=== PATIENT | female | born 1995 | race African-American/Black ===

== ENCOUNTER 2016-07-12 11:12 | Emergency (ER) | payer MEDICAID ==
[2016-07-12 11:24] VITALS: BP 106/71
--- NOTE | 2016-07-12 11:32 | ER Document Report ---
ED Medical Screen (RME) - General Stated Complaint: DIFFICULTY BREATHING Notes: 21 yo female c/o bleeding from incision. C section 1-13 in [place]. bleeding x several days, but has increased x 1 day. feels short of breath with activity, walking. no fever. + pain at incision. + hx/o asthma. + pre- eclampsia TRAVEL OUTSIDE OF THE [place] IN LAST 30 DAYS: No - Related Data Allergies/Adverse Reactions: strawberry Allergy (Verified 07/12/16 11:30) Past Medical History Pulmonary Medical History: Reports: Hx Asthma Physical Exam - Vital signs Vitals: Temp Pulse Resp BP Pulse Ox 98.0 F 93 16 106/71 97 07/12/16 11:23 07/12/16 11:23 07/12/16 11:23 07/12/16 11:23 07/12/16 11:23 Course - Vital Signs Vital signs: Temp Pulse Resp BP Pulse Ox 98.0 F 93 16 106/71 97 07/12/16 11:23 07/12/16 11:23 07/12/16 11:23 07/12/16 11:23 07/12/16 11:23
[2016-07-12 11:48] LABS: ABSOLUTE BASOPHILS # (AUTO) 0.1 10^3/uL (0.0-0.2); ABSOLUTE EOSINOPHILS # (AUTO) 0.2 10^3/uL (0.0-0.6); ABSOLUTE MONOCYTES (AUTO) 0.4 10^3/uL (0.1-1.4); EOSINOPHILS % (AUTO) 2.4 % (0-6); HEMATOCRIT 31.9 % (36.0-47.0); HEMOGLOBIN 10.6 g/dL (12.0-15.5); HGB HCT DIFFERENCE -0.1; LYMPHOCYTES % (AUTO) 15.2 % (13-45); MEAN CORPUSCULAR HEMOGLOBIN 30.6 pg (27.0-33.4); MEAN CORPUSCULAR HGB CONC 33.4 g/dL (32.0-36.0); MEAN CORPUSCULAR VOLUME 92 fl (80-97); MONOCYTES % (AUTO) 5.8 % (3-13); RED BLOOD COUNT 3.48 10^6/uL (3.72-5.28); RED CELL DISTRIBUTION WIDTH 14.3 % (11.5-14.0); SEGMENTED NEUTROPHILS % (AUTO) 75.6 % (42-78); WHITE BLOOD COUNT 6.6 10^3/uL (4.0-10.5)
[2016-07-12 12:01] LABS: ALANINE AMINOTRANSFERASE 31 U/L (9-52); ALBUMIN 4.1 g/dL (3.5-5.0); ALKALINE PHOSPHATASE 103 U/L (38-126); ANION GAP 11 (5-19); ASPARTATE AMINO TRANSFERASE 25 U/L (14-36); BILIRUBIN,TOTAL 0.8 mg/dL (0.2-1.3); BLOOD UREA NITROGEN 15 mg/dL (7-20); CARBON DIOXIDE 24 mmol/L (22-30); CHLORIDE 105 mmol/L (98-107); CREATININE RESULT 0.81 mg/dL (0.52-1.25); GLUCOSE 101 mg/dL (75-110); POTASSIUM 4.5 mmol/L (3.6-5.0); SODIUM 139.9 mmol/L (137-145); TOTAL PROTEIN 7.2 g/dL (6.3-8.2)
--- NOTE | 2016-07-12 13:58 | ER Document Report ---
ED General - General Chief Complaint: Post-Op Stated Complaint: DIFFICULTY BREATHING Time seen by provider: 13:25 Mode of Arrival: Ambulatory Information source: Patient Notes: 21-year-old female status post for preeclampsia on the in [place]. He had bleeding from incision site several days ago that resolved and then returned this morning. Patient states she contacted her [employer] office and was instructed to either keep her appointment on Sunday or him to the emergency department. She reports she had copious bleeding earlier this morning but the current pad that she has on has been in place since 9:30 this morning. She reports no further bleeding now. She reported to triage shortness of breath and dyspnea on exertion but denies those to this examiner. The patient reports all of her preeclampsia symptoms resolved with delivery. She denies fever, chills, nausea, vomiting, cough, headache, visual disturbances , pain numbness weakness to extremities, vaginal bleeding or discharge, or syncope Physical Exam: General: Alert, appears well. HEENT: Normocephalic. Atraumatic. PERRLA. Extraocular movements intact. Oropharynx clear. Neck: Supple. Non-tender. Respiratory: No respiratory distress. Clear and equal breath sounds bilaterally. Cardiovascular: Regular rate and rhythm. Abdominal: Normal Inspection. Soft, Pfannenstiel incision appears to be healing well. There is a 2 cm long area just right of the midline with visible subcutaneous tissue and this corresponds to the patient's report of pain. There is a dressing in place with what I estimate his approximately 1 mL of dried blood but no active bleeding is present. Palpation of the entire length of the incision produces minimal discomfort at a think is appropriate for this stage of healing no purulence or bleeding fluctuance or crepitance erythema warmth or induration is palpated at any point. I do not in identify any opening suggestive of a tract or deeper cavity Normal Bowel Sounds. No guarding rebound rigidity Back: Non-tender. No deformity or step off. Extremities: Moves all four extremities. Upper extremities: Normal inspection. Non-tender. Normal color. Normal ROM. Normal temperature. Lower extremities: Normal inspection. Non-tender. No edema. Normal color. Normal ROM. Normal temperature. Neurological: Speech clear mentation normal Psychological: Normal affect. Normal Mood. Skin: Warm. Dry. Normal color. TRAVEL OUTSIDE OF THE [place] IN LAST 30 DAYS: No - Related Data Allergies/Adverse Reactions: strawberry Allergy (Verified 07/12/16 11:30) Past Medical History - Social History Smoking Status: Never Smoker Chew tobacco use (# tins/day): No Frequency of alcohol use: None Drug Abuse: None Family History: Arthritis, DM, Hypertension, Malignancy Patient has suicidal ideation: No Patient has homicidal ideation: No Pulmonary Medical History: Reports: Hx Asthma Renal/ Medical History: Denies: Hx Peritoneal Dialysis Review of Systems - Review of Systems Constitutional: denies: Chills, Fever EENT: denies: Ear pain, Throat pain Cardiovascular: denies: Chest pain Respiratory: denies: Cough, Short of breath Gastrointestinal: denies: Nausea, Vomiting Genitourinary: denies: Burning, Dysuria Female Genitourinary: denies: Vaginal discharge, Vaginal bleeding Musculoskeletal: denies: Back pain Hematologic/Lymphatic: denies: Swollen glands Neurological/Psychological: denies: Weakness, Numbness Physical Exam - Vital signs Vitals: Temp Pulse Resp BP Pulse Ox 98.0 F 93 16 106/71 97 07/12/16 11:23 07/12/16 11:23 07/12/16 11:23 07/12/16 11:23 07/12/16 11:23 Course - Re-evaluation Re-evalutation: 07/12/16 13:58 Patient's wound appears to be healing well. Her hemoglobin is low but I think that's likely consistent with recent . She stated amply stable to find no evidence of bleeding serious enough to warrant transfusion or admission. Believe she is safe for discharge to keep her appointment with her [employer] [facility] in [place] in 2 days - Vital Signs Vital signs: Temp Pulse Resp BP Pulse Ox 98.0 F 93 16 106/71 97 07/12/16 11:23 07/12/16 11:23 07/12/16 11:23 07/12/16 11:23 07/12/16 11:23 - Laboratory Result Diagrams: 07/12/16 11:35 07/12/16 11:35 Laboratory results interpreted by me: 07/12/16 11:35 RBC 3.48 L Hgb 10.6 L Hct 31.9 L RDW 14.3 H Discharge - Discharge Clinical Impression: Postoperative bleeding from incision Condition: Stable Disposition: HOME, SELF-CARE Additional Instructions: Laceration Care Keep the wound and dressing clean. Unless you were told otherwise, you may shower daily, blotting the wound dry with a clean, unused towel. At other times, If the dressing gets wet or blood soaked, remove it and blot the wound dry, then reapply a new dressing. Unless you were instructed otherwise, dressings should be changed at least daily. If any signs of infection occur (swelling, redness, increasing tenderness, red streaks, tender lumps in the armpit or groin above the laceration, or fever) , see the doctor immediately. Keep her appointment with your doctor in 2 days to have your incision rechecked.
== END 2016-07-12 14:17 | disposition home or self-care (01) ==
LOC: ER 11:12
DX: O99.73 Diseases of the skin and subcutaneous tissue complicating the puerperium (principal); L76.22 Postprocedural hemorrhage of skin and subcutaneous tissue following other procedure; Y83.8 Other surgical procedures as the cause of abnormal reaction of the patient, or of later complication, without mention of misadventure at the time of the procedure; O90.81 Anemia of the puerperium; D64.9 Anemia, unspecified; O99.53 Diseases of the respiratory system complicating the puerperium; J45.909 Unspecified asthma, uncomplicated
CPT/HCPCS: 36415; 80053; 85025; 99283

== ENCOUNTER 2017-03-13 22:33 | Emergency (ER) | payer MEDICAID ==
[2017-03-13 23:09] VITALS: BP 136/60
== END 2017-03-14 03:25 | disposition left against medical advice (07) ==
LOC: ER 22:33
DX: Z53.21 Procedure and treatment not carried out due to patient leaving prior to being seen by health care provider (principal)